=== PATIENT | female | born 1985 | race African-American/Black ===

== ENCOUNTER 2017-07-15 07:31 | Day surgery (SDC) | payer BC ==
[2017-07-14 16:24] LABS: HEMATOCRIT 37.4 % (36.0-48.0); HEMOGLOBIN 12.2 g/dL (12.0-16.0)
[~2017-07-15] VITALS: Ht 162.6 cm; Wt 102.7 kg
--- NOTE | ~2017-07-15 | OP ---
Record Of Operation [facility] [address] [place]. [address] NAME: VICKY FRAZIER : 85 STATUS : REG [facility] [place] PAT#: [id number] AGE: 32 ADM/REG DATE : 07/15/17 MR#: [id number] REPORT SERV DATE: 07/15/17 DICTATED BY: RUMA LUZ DATE: 07/15/17 REPORT STATUS : Draft TRANSCRIBED BY: BROCK DATE: 07/15/17 DATE OF PROCEDURE: 07/15/2017 PREOPERATIVE DIAGNOSES: 1. Chronic tonsillitis. 2. Mild obstructive sleep apnea syndrome. 3. Tonsil and adenoid hypertrophy. POSTOPERATIVE DIAGNOSES: 1. Chronic tonsillitis. 2. Mild obstructive sleep apnea syndrome. 3. Tonsil and adenoid hypertrophy. PROCEDURE: Tonsillectomy and adenoidectomy. INDICATIONS: Vicky Frazier is a 32-year-old female, who has significant issues with chronic tonsillitis, and tonsil and adenoid hypertrophy with snoring. Her sleep study was positive for modest sleep apnea and she actually had a mass titration but her numbers were not very concerning on that. I counseled her about the risks, benefits, and alternatives. The risks include, but are not limited to pain, bleeding, infection, and scarring. I quoted her a 1% risk for postoperative bleeding and told her the commonest time for that is 7-10 days after surgery. I also told her that we would do the adenoid check prior to performing the adenoidectomy and she agreed with that. PROCEDURE IN DETAIL: Vicky was brought to the operating room and positioned on the table in a supine manner. General endotracheal anesthesia was induced. The patient was prepped and draped in the usual fashion. The Goran-Beck mouth gag was introduced to retract the tongue and the mandible. We used a non-latex catheter retractor to retract the soft palate. Using a mirror, we did an adenoid check and the adenoid was moderate in size. The adenoidectomy was performed with a large adenoid curette in two passes and then we packed the nasopharynx with the bismuth-containing sponges while we did the tonsillectomy. The superior pole of the right tonsil was grasped with a tonsil tenaculum. The Bovie on a low setting of 8 was used to remove the tonsil from the tonsillar fossa. Additional hemostasis was obtained with the suction Bovie apparatus. This side was injected with 0.5% Marcaine without epinephrine and then painted with the bismuth subgallate solution. The left tonsil was removed in a manner similar to the right. We took the packs out of the nasopharynx and performed a conservative suction cautery with the suction Bovie set at 30. The packs were then replaced in the nasopharynx for a brief period. A tube was passed into the stomach and stomach contents were suctioned, which were few. I closed the tonsillar fossa with a single interrupted [id number] stitch with 4-0 undyed Vicryl. Following this, the oral cavity was irrigated out one more time and the nasopharynx as well. No additional bleeding was seen in the nasopharynx. The Goran-Beck mouth gag was removed as well as the non-latex catheter. The patient was cleaned up. She was returned to anesthesia control. She was extubated in the operating room and moved to the recovery room in good condition. Record Of Operation [address] [address] NAME: VICKY FRAZIER : 85 STATUS : REG [facility] [place] PAT#: [id number] AGE: 32 ADM/REG DATE : 07/15/17 MR#: [id number] REPORT SERV DATE: 07/15/17 DICTATED BY: RUMA LUZ DATE: 07/15/17 REPORT STATUS : Draft TRANSCRIBED BY: MODL DATE: 07/15/17 FINDINGS: 1. Estimated blood loss 50 mL. 2. Total fluids given 500 mL of Ringer's lactate. 3. 4+ tonsillar hypertrophy, worse on the left side. 4. Moderate-sized adenoid pad. FARAZ/MODL Ruma Luz M.D. / [id number] CC: Medhat Fernandez D.O.
[~2017-07-15 07:31] MED LIST: ADDERXR30 PO; JUNEL F1 PO; PROAIRRESP INH; ZOL50 PO; ZYRTEC ALLGY10 MG PO
== END 2017-07-15 14:45 | disposition home or self-care (01) ==
LOC: SDC 07:31
PROVIDERS: Otolaryngology
PROC: 0CTPXZZ Resection of Tonsils, External Approach (ICD-10-PCS; principal; 2017-07-15 09:00)
PROC: 0CTQ0ZZ Resection of Adenoids, Open Approach (ICD-10-PCS; 2017-07-15 09:00)
DX: J35.3 Hypertrophy of tonsils with hypertrophy of adenoids (principal); J35.01 Chronic tonsillitis; G47.33 Obstructive sleep apnea (adult) (pediatric); J45.909 Unspecified asthma, uncomplicated; K21.9 Gastro-esophageal reflux disease without esophagitis; F32.9 Major depressive disorder, single episode, unspecified; M19.90 Unspecified osteoarthritis, unspecified site; E66.01 Morbid (severe) obesity due to excess calories; Z68.37 Body mass index [BMI] 37.0-37.9, adult; Z99.89 Dependence on other enabling machines and devices; Z88.2 Allergy status to sulfonamides; Z91.040 Latex allergy status; Z98.890 Other specified postprocedural states; Z79.899 Other long term (current) drug therapy
CPT/HCPCS: 84703; 85014; 85018; 88304; A9270-GY; J2250; J2270; J2405; J2710; J3010